=== PATIENT | female | born 1980 | race Two or more races ===

== ENCOUNTER 2018-11-14 22:22 | Emergency (ER) | payer OTHER ==
[~2018-11-14] VITALS: Ht 167.6 cm; Wt 69.9 kg
[2018-11-14 22:36] VITALS: BP 146/63
[2018-11-14 23:17] LABS: Basophils # (auto) 0.1 uL; Basophils % (auto) 0.7 % (0.0-2.0); Eosinophils # (auto) 0.5 uL; Eosinophils % (auto) 6.4 % (0.0-7.0); Hematocrit 41.1 % (36.0-46.0); Hemoglobin 14.1 g/dL (12.2-16.2); Lymphocytes # (auto) 2.5 uL; Lymphocytes % (auto) 31.7 % (10.0-50.0); Mean Corpuscular Hemoglobin 31.1 pg (28.0-32.0); Mean Corpuscular Hgb Conc. 34.2 g/dL (32.0-36.0); Mean Corpuscular Volume 90.9 fL (80.0-100.0); Monocytes # (auto) 0.6 uL; Monocytes % (auto) 7.5 % (0.0-12.0); Neutrophils # (auto) 4.3 uL; Neutrophils % (auto) 53.7 % (37.0-80.0); Nucleated Red Blood Cells % 0.1 %; Platelet Count (auto) 370 10^3/uL (140-450); Red Blood Cells 4.52 10^6/uL (4.0-5.20); Red Cell Distribution Width 12.7 % (11.8-14.3)
[2018-11-14 23:35] LABS: Albumin 3.2 g/dL (3.4-5.0); Anion Gap 7 (5-15); Blood Urea Nitrogen 8 mg/dL (7-18); Calcium 8.7 mg/dL (8.5-10.1); Carbon Dioxide 26 mmol/L (21-32); Chloride 107 mmol/L (98-107); Glucose 109 mg/dL (74-106); Potassium 4.5 mmol/L (3.5-5.1); Sodium 140 mmol/L (136-145)
[2018-11-14 23:38] LABS: Alanine Aminotransferase 20 U/L (13-56); Aspartate Aminotransferase 15 U/L (15-37); BUN/Creatinine Ratio 9.2; GFR African American 94 mL/min; GFR Non-African American 77 mL/min
[2018-11-14 23:43] LABS: Alkaline Phosphatase 42 U/L (45-117); Bilirubin, Total 0.2 mg/dL (0.2-1.0); Total Protein 7.5 g/dL (6.4-8.2)
== END 2018-11-15 03:06 | disposition left against medical advice (07) ==
LOC: ER 22:22
DX: R07.89 Other chest pain (principal); Z53.21 Procedure and treatment not carried out due to patient leaving prior to being seen by health care provider
CPT/HCPCS: 36415; 71046; 80053; 84484; 85025; 93005

== ENCOUNTER 2023-10-18 07:40 | Emergency (ER) | payer OTHER ==
[~2023-10-18] VITALS: Ht 165.1 cm; Wt 84.3 kg
[2023-10-18 08:06] VITALS: BP 155/92; PULSE 101; RESP 18; TEMP 98.3; O2SAT 99
[2023-10-18] MEDS: KETOROLAC TROMETH 60MG/2ML VIAL IM ONE (08:20)
[2023-10-18] MEDS ORDERED: PRED20TA2 PO (08:52)
[2023-10-18] MEDS ORDERED: TRAM50TA2 PO ×2 (08:52→08:54)
== END 2023-10-18 08:59 | disposition home or self-care (01) ==
LOC: ER 07:40
DX: M50.10 Cervical disc disorder with radiculopathy, unspecified cervical region (principal); Z88.8 Allergy status to other drugs, medicaments and biological substances; Z79.899 Other long term (current) drug therapy
CPT/HCPCS: 72040; 96372; 99283; J1885